=== PATIENT | male | born 1955 | race Caucasian/White ===

== ENCOUNTER 2020-01-01 11:19 | Inpatient (IN) | payer OTHER ==
[~2020-01-01] VITALS: Ht 170.2 cm; Wt 74.4 kg
[2020-01-01 11:31] VITALS: BP 142/80
[2020-01-01 11:59] LABS: HEMATOCRIT 40.7 % (42.0-52.0); HEMOGLOBIN 13.8 gm/dL (14.0-18.0); MCH 30.7 pg (26.0-34.0); MCHC 33.9 g/dL (28.0-37.0); MCV 90.8 fL (80.0-100.0); PLATELET COUNT 193 thou/uL (150-400); RBC 4.49 mil/uL (4.50-6.00); RDW 12.8 % (10.5-14.5); WBC 21.6 thou/uL (4.0-11.0)
[2020-01-01 12:00] LABS: ANION GAP 5 mmol/L (7-16); BUN 12 mg/dL (7-18); CALCIUM 9.2 mg/dL (8.5-10.1); CHLORIDE 93 mmol/L (98-107); CO2 29 mmol/L (21-32); CREATININE 1.1 mg/dL (0.7-1.3); GLUCOSE 137 mg/dL (74-106); SODIUM 127 mmol/L (136-145)
[2020-01-01 12:10] LABS: ALBUMIN 3.6 g/dL (3.4-5.0); SGOT 29 U/L (15-37); SGPT 30 U/L (30-65); TOTAL BILIRUBIN 1.7 mg/dL (0.2-1.0); TOTAL PROTEIN 7.5 g/dL (6.4-8.2); TROPONIN-I <0.06 ng/mL (<0.06)
[2020-01-01 12:25] LABS: URINE BILIRUBIN NEGATIVE (Negative); URINE BLOOD 3+ (Negative); URINE CLARITY CLEAR; URINE COLOR YELLOW; URINE GLUCOSE-RANDOM* NEGATIVE (Negative); URINE KETONES NEGATIVE (Negative); URINE LEUKOCYTES-REFLEX NEGATIVE (Negative); URINE NITRITE-REFLEX NEGATIVE (Negative); URINE PROTEIN (DIPSTICK) 2+ (Negative); URINE SPECIFIC GRAVITY 1.025 (1.005-1.035)
[2020-01-01 12:39] LABS: CASTS None Seen /LPF (None Seen); MUCUS 4-6 Moderate strn/LPF (None Seen); SQUAMOUS 0-3 Few /LPF (0-3)
[2020-01-01 12:40] LABS: BACTERIA-REFLEX 1-9 Few /HPF (None Seen); CRYSTALS None Seen /LPF (None Seen); URINE RBC 3-10 Few /HPF (0-2); URINE WBC-REFLEX 0-5 Rare /HPF (0-5)
[2020-01-01] MEDS ORDERED: SIMVASTATIN40 MG PO (12:45)
[2020-01-01 13:38] LABS: ABSOLUTE NEUTROPHILS 17.7 thou/uL (1.4-8.2); ATYPICAL LYMPHS 1 %; METAMYELOCYTES 1 %
[2020-01-01 16:09] VITALS: BP 141/78
--- NOTE | 2020-01-01 16:40 | EKG ---
[facility] [place] [address] ELECTROCARDIOGRAM REPORT Name: TR LIVE Room #: 170-15 ADM IN M.R.#: [id number] Admission: 01/01/20 Attend Phys: Jordin Talbert MD Discharge: Date of : 59 Report #: [id number] THIS REPORT FOR: cc: AGUILAR - No family physician/PCP FAM - No family physician/PCP Brandin Carvalho MD [facility] THIS REPORT FOR: //name// [facility] Test Date: 2020-01-01 Test Time: 12:14:17 Pat Name: TR LIVE Department: Room: 170 Gender: M Gore Cutter: ABBI : 1955 Requested By: Sukhdev Burnett Order Number: [id number] MD: Brandin Carvalho Measurements Intervals [place] Rate: 114 P: 63 MN: 146 QRS: 31 QRSD: 103 T: 31 QT: 314 QTc: 433 Interpretive Statements Sinus tachycardia RSR' in V1 or V2, probably normal variant No previous ECG available for comparison Electronically Signed On 01-01-2020 16:40:01 CDT by Brandin Carvalho [email or web address] <ELECTRONICALLY SIGNED> By: Brandin Carvalho MD, FACC 01/01/20 1640 1214 1214 Brandin Carvalho MD, [facility] /EPI
[2020-01-01 16:49] VITALS: BP 130/78
--- NOTE | 2020-01-01 18:28 | NUR ---
assumed care of pt on arrival to unit at approx 1715. pt aox4 in no acute distress. presents with fever of 103F. painful swallowing, otherwise voicing no complaints. up ad mp w/ steady gait. iv abx and fluids started per order. clear liquids for now. wcm.
[2020-01-01 20:25] VITALS: BP 140/82
[2020-01-02 00:42] VITALS: BP 145/77
[2020-01-02 04:05] VITALS: BP 140/82
--- NOTE | 2020-01-02 04:09 | NUR ---
assumed pt care at the change of shift, pt is awake, alerta and oriented, makes needs known, denies pain or sob, assessments as charted, temp elevated at 101.1, tyl given as per jun, medications given as per jun, o2 sat stable on room air, tolerating fluids, states that swallowing feels better, no acute distress noted, will continue to monitor
[2020-01-02 06:00] VITALS: BP 140/82
[2020-01-02 06:11] LABS: ABSOLUTE NEUTROPHILS 16.3 thou/uL (1.4-8.2); BASOPHILS 0.2 % (0.0-2.0); HEMATOCRIT 40.6 % (42.0-52.0); HEMOGLOBIN 13.5 gm/dL (14.0-18.0); LYMPHOCYTES 3.6 % (24.0-44.0); MCH 30.6 pg (26.0-34.0); MCHC 33.2 g/dL (28.0-37.0); MCV 92.2 fL (80.0-100.0); MONOCYTES 2.9 % (1.0-8.0); PLATELET COUNT 164 thou/uL (150-400); POLYS 93.3 % (36.0-66.0); RBC 4.41 mil/uL (4.50-6.00); RDW 12.9 % (10.5-14.5); WBC 17.4 thou/uL (4.0-11.0)
[2020-01-02 06:24] LABS: CALCIUM 8.5 mg/dL (8.5-10.1); POTASSIUM 4.1 mmol/L (3.5-5.1)
[2020-01-02 08:00] VITALS: BP 137/84
--- NOTE | 2020-01-02 10:10 | NUR ---
CM COMPLETED THE INITIAL ASSESSMENT TO DISCUSS D/C PLANNING. PT A&OX4. PT LIVES AT HOME ALONE. PT HAS 0 DMES. PT DENIES HX W/HH AND SNF. PT HAS LIMITED SUPPORT SYSTEM, "NOT REALLY." PT DOES NOT HAVE "ANY FAMILY REALLY...IT'S A LONG STORY." PT STATES, "I HAVE A FEW FRIENDS." PT IS ACTVES, DRIVES A VEHICLE, INDEPENDENT W/ADLS. RETIRED. GOAL IS TO RTRN HOME AT D/C. CM TO CONT TO FOLLOW.
[2020-01-02 17:00] VITALS: BP 164/81
[2020-01-02 20:27] VITALS: BP 133/79
[2020-01-03 05:07] VITALS: BP 148/89
[2020-01-03 07:59] LABS: CALCIUM 8.8 mg/dL (8.5-10.1); CREATININE 0.8 mg/dL (0.7-1.3); MAGNESIUM 2.5 mg/dL (1.8-2.4); POTASSIUM 4.5 mmol/L (3.5-5.1)
[2020-01-03 08:01] LABS: HEMATOCRIT 40.3 % (42.0-52.0); HEMOGLOBIN 13.9 gm/dL (14.0-18.0); MCH 31.3 pg (26.0-34.0); MCHC 34.5 g/dL (28.0-37.0); MCV 90.6 fL (80.0-100.0); RBC 4.44 mil/uL (4.50-6.00); RDW 12.7 % (10.5-14.5); WBC 16.7 thou/uL (4.0-11.0)
[2020-01-03 08:15] VITALS: BP 137/85
[2020-01-03 09:10] LABS: CHOLESTEROL 136 mg/dL (<200); HDL CHOLESTEROL 54 mg/dL (>40); LDL CHOLESTEROL 65 mg/dL (<100); TC:HDL 2.5 Ratio (Not establshd); TRIGLYCERIDE 88 mg/dL (<150); VLDL 18 mg/dL (<40)
--- NOTE | 2020-01-03 10:05 | EKG ---
[facility] [place] [address] ELECTROCARDIOGRAM REPORT Name: TR LIVE Room #: 354-P ADM IN M.R.#: [id number] Admission: 01/01/20 Attend Phys: Jordin Talbert MD Discharge: Date of : 59 Report #: [id number] THIS REPORT FOR: cc: AGUILAR - Faustina family physician/PCP FAM - No family physician/PCP Zach Plascencia MD ~ THIS REPORT FOR: //name// [facility] Test Date: 2020-01-03 Test Time: 09:27:13 Pat Name: TR LIVE Department: Room: 354 P Gender: M Salt Cutter: [place] : 1955 Requested By: Brina Cao Order Number: [id number] MD: Zach Plascencia Measurements Intervals [place] Rate: 105 P: 50 WI: 130 QRS: 13 QRSD: 105 T: 22 QT: 337 QTc: 446 Interpretive Statements Sinus tachycardia Atrial premature complex Sinus pause Nonspecific ST-T wave changes Compared to ECG 01/01/2020 12:14:17 Atrial premature complex(es) now present Sinus pause or arrest now present Electronically Signed On 01-03-2020 10:05:00 CDT by Zach Plascencia [email or web address] <ELECTRONICALLY SIGNED> By: Zach Plascencia MD 01/03/20 1005 6 6 Zach Plascencia MD /EPI
--- NOTE | 2020-01-03 11:24 | HC ---
[facility] [place] [address] CONSULTATION Name: TR LIVE Room #: 354-P ADM IN M.R.#: [id number] Admission: 01/01/20 Attend Phys: Jordin Talbert MD Discharge: Date of : 59 Report #: [id number] THIS REPORT FOR: cc: AGUILAR - No family physician/PCP AGUILAR - No family physician/PCP Ryan Blackman MD ~ CC: Lewis SHEIKH physician/PCP Stuart Talbert MD DATE OF SERVICE: 01/02/2020 SURGEON: Ryan Blackman MD REASON FOR CONSULTATION: Severe sore throat with sepsis. HISTORY OF PRESENT ILLNESS: The patient is a 64-year-old male admitted through the Emergency Department yesterday morning with complaints of a sudden onset of severe sore throat, about 1 in the morning. He tried to sleep through the night and eventually developed some rigors, associated with a fever. He presented to the Emergency Department complaining of sore throat as well as dysphagia and odynophagia that worsened. He has since been placed on aggressive antibiotic therapy including vancomycin and Zosyn and states that this morning, these symptoms are better, but certainly not resolved. He had an exposure to his mother who tested positive from COVID-19; two weeks ago, she since of other reasons than COVID. The patient does not have a history of sore throat. He does not have a history of any dysphagia. Risk factors for head and neck cancer include a habit of 2 glasses of red wine daily. He denies any tobacco usage. He is an active, vigorous 64-year-old. He had recently been on 15-mile bike ride the day before the symptoms began. PAST MEDICAL HISTORY: Otherwise, unremarkable. Significant for nasal septoplasty and bilateral inferior turbinectomy in the early 1970s at [facility]. FAMILY HISTORY: Mother recently . SOCIAL HISTORY: He does use alcohol. He denies tobacco or illicit drug use. REVIEW OF SYSTEMS: Other than sore throat, his 12-point review of systems [facility] [address] [place] [address] CONSULTATION Name: TR LIVE Room #: 354-P [facility] IN [facility].#: [id number] Admission: 01/01/20 Attend Phys: Jordin Talbert MD Discharge: Date of : 59 Report #: [id number] otherwise negative. Specifically, he denies any abdominal discomfort, diarrhea, constipation. He denies any burning with urination. He denies any chest pain, nausea, vomiting or shortness of breath. PHYSICAL EXAMINATION: GENERAL: Shows a well-developed 64-year-old male. He is alert, awake, and cogent. He is sitting in his hospital bed, able to converse and give history. He does have hoarseness and does complain of pain when he swallows. VITAL SIGNS: Show a temperature of 99.0 with a T-max of 101.1, pulse of 107, blood pressure 137/84, respirations of 32, 96% saturation on room air. HEENT: Normocephalic. His pupils are equal, round, reactive to light. Otologic exam shows normal canals, mild cerumen, nonobstructing. Intact tympanic membranes. No middle ear effusion. No redness. Nasal exam shows a previously operated nasal septum and a partial turbinectomy. There is no evidence of any sinusitis, mucopurulence or polyps. Oral cavity shows normal tongue, normal floor of mouth, intact mucosa. No evidence of any erythema, intact dentition without tenderness to percussion. Hypopharynx was examined with flexible endoscopy after topical Mayur-Synephrine and lidocaine. This shows severe laryngitis asymmetrically on the right with involvement of the arytenoids with some slight necrotic exudate on each arytenoid. There is no obvious abscess. The patient has minimal pooling of secretions at the posterior pharynx, but does have swelling. Vocal cords appear mobile. There is no soft tissue mass noted, although this always would be suspicious for an occult head and neck cancer. NECK: Without adenopathy or masses. The trachea is in the midline. Thyroid is normal. NEUROLOGIC: Cranial nerves 2-12 are intact. Motor, sensory and cerebellar exams are otherwise grossly normal. LABORATORY DATA: This morning, CBC shows a white count of 17,400[place] [address]. He has a hemoglobin of 13.5 and platelets of 164,000. There is a left shift. Blood cultures were positive for gram-positive cocci, still being typed. Metabolic survey shows some hyponatremia with a sodium of 129 on IV resuscitation, chloride of 95 and glucose of 115, otherwise normal. Vitamin D level was done, which is 34.5. His lactic acid on admission was 1.4. I reviewed his CT soft tissue with contrast done on admission yesterday and read out by Dr. Reyes. This shows asymmetric soft tissue in the posterior pharynx and I agree with that finding on my endoscopy. This is at the level of the larynx, associated with swelling of the arytenoids. There is no involvement of the epiglottis, either on CT or on endoscopy. Dr. Reyes wrote that he could not exclude the possibility of a very early posterior right pharyngeal abscess, I do not see any evidence of abscess on the CT and this does not correlate clinically with an abscess. There is minimal adenopathy on CT and I do not feel clinically any significant adenopathy in the neck. [facility] [address] [place] [address] CONSULTATION Name: TR LIVE Room #: 354-P [facility] IN M.R.#: [id number] Admission: 01/01/20 Attend Phys: Jordin Talbert MD Discharge: Date of : 59 Report #: [id number] A chest x-ray was done and reviewed. This was normal on admission. ASSESSMENT: 1. Sudden onset of severe sore throat, associated with hoarseness, dysphagia and odynophagia at 1 in the morning around 01/01/2020 after a 15-mile bike ride and the patient has clinically responded to Zosyn and vancomycin as well as IV hydration, but not resolved. Endoscopy is consistent with severe laryngitis; that likely is more viral in origin than bacterial. I do not see any abscess on CT or on endoscopy. Clinical suspicion in this scenario also always relates to a possibility of an occult head and neck carcinoma, especially in this patient with significant alcohol use of wine, but no tobacco. I have told him that this will need to be treated aggressively medically with assumption of clearance, if this is inflammatory. I will need to see him back in the office under any circumstance in 2 weeks for repeat endoscopy and possibly repeat CT to assure that there is no evidence of occult head and neck cancer. I have also cautioned him that if this fails to improve, this will require direct laryngoscopy for evaluation. 2. Sepsis with normal lactic acid, improved on treatment. I have talked with Dr. Arreola. I would recommend beginning Decadron 10 mg IV now, 8 mg q. 8 x6 doses. 3. Probable reflux component. I have suggested discontinuation of famotidine and addition of pantoprazole 40 mg b.i.d. half an hour before meals. 4. Hyponatremia, likely secondary to rehydration. PLAN: We will plan to follow along with you. We will discuss with Dr. Chino, Infectious Disease, who has been consulted. I appreciate the consultation and ability to share in his care. Please do not hesitate to call for any change in his clinical status. <ELECTRONICALLY SIGNED> By: Ryan Blackman MD 01/03/20 1124 0948 1345 Ryan Blackman MD /nt
--- NOTE | 2020-01-03 11:25 | O ---
[facility] [place] [address] OPERATIVE REPORT Name: TR LIVE Room #: 354-P [facility] IN M.R.#: [id number] Admission: 01/01/20 Attend Phys: Jordin Talbert MD Discharge: Date of : 59 Report #: [id number] THIS REPORT FOR: cc: AGUILAR - No family physician/PCP FAM - No family physician/PCP Ryan Blackman MD ~ CC: Ghulam Chino MD [facility] physician/PCP Stuart Talbert MD DATE OF SERVICE: 01/02/2020 SURGEON: Ryan Blackman MD PREOPERATIVE DIAGNOSES: 1. Severe sore throat. 2. Odynophagia. 3. Dysphagia. 4. Sepsis. POSTOPERATIVE DIAGNOSES: 1. Severe laryngitis, asymmetric on the right. 2. Severe sore throat. 3. Odynophagia. 4. Dysphagia. 5. Sepsis. PROCEDURE: Flexible laryngoscopy. INDICATIONS: The patient is a 64-year-old male admitted yesterday with sepsis and severe sore throat with odynophagia and dysphagia. CT scan seemed to show suggestion of swelling in the larynx and posterior pharynx. I was asked to see him to evaluate. DESCRIPTION OF PROCEDURE: In the patient's hospital room after consent, topical anesthesia was achieved with 1% Mayur-Synephrine and 4% lidocaine topically with nasal spray. After an appropriate period, a flexible laryngoscope was then passed through both sides of the nose. Complete examination was made of the nose. The patient had had a previous nasal septoplasty and partial turbinectomy. There was no evidence of any mucopurulence, polyps or other mass lesion. Nasopharynx was clear. Oral cavity showed no lesions. Hypopharynx and larynx showed diffuse edema and erythema with ulcerative laryngitis at the arytenoid, slightly asymmetric right greater than left. Vocal cords were mobile. There was no evidence of abscess. There was no significant asymmetric [facility] [place] [address] OPERATIVE REPORT Name: TR LIVE Room #: 354-P [facility]#: [id number] Admission: 01/01/20 Attend Phys: Jordin Talbert MD Discharge: Date of : 59 Report #: [id number] swelling of the retropharynx. The laryngoscope was then removed. The patient tolerated the procedure well. There were no complications. <ELECTRONICALLY SIGNED> By: Ryan Blackman MD 01/03/20 1125 1029 1044 Ryan Blackman MD /nt
--- NOTE | 2020-01-03 13:19 | NUR ---
SW reviewed chart and spoke with nursing and attending physician. Pt remains in Enhanced Isolation to r/o COVID-19. Pt's second test is pending. Pt is afebrile and not requiring O2. Pt is on IV abx. ENT consulted due to laryngitis. Plan is for pt to discharge home when medically stable. SW is following to assist as needed with discharge planning.
--- NOTE | 2020-01-03 13:47 | NUR ---
ASSUMED PATIENT CARE THIS AM AT APPROXIMATELY 0700. PATIENT AWAKE ALERT ORIENTED, ASSESSMENT AND MEDS CHARTED. PATIENT STATES THAT SORE THROAT HAS GREATLY IMPROVED OVER THE LAST COUPLE OF DAYS. COMPLAINS OF INTERMITTENT CHEST PAINS. INFORMED DR. KERNS UPON ROUNDING AND CARDIO CONSULT OBTAINED AND CALLED. DR. FAY TO SEE PATIENT. NO ACUTE CARDIAC INTERVENTIONS PLANNED AT THIS TIME. TROPONINS NEGATIVE. PATIENT IV INFILTRATED TO RIGHT AC. D/CD AND NEW IV STARTED TO LEFT FOREARM. PATIENT TOLERATED WELL.RECIEVING IV ABO ORDERED. PATIENT STILL AWAITING COVID RESULTS. TOLERATING PURREED DIET WELL. COMPLAINTS OF A DECREASED APPETITE. WILL CTM
[2020-01-03 15:20] VITALS: BP 140/93
[2020-01-03 20:00] VITALS: BP 144/90
[2020-01-04 03:59] VITALS: BP 136/81
--- NOTE | 2020-01-04 04:51 | NUR ---
PT BLOOD CULTURES CAME BACK AND SHOWED POSITIVE FOR STREP A. STARTED NEW POC WITH IVPB ANTIBIOTICS PER ID. VSS, NO COMPLAINTS OF CHEST P/N/V. NO FEVERS. PT UP AD JOSE M TO BATHROOM AND AWAITING COVID R/O.
[2020-01-04 05:12] LABS: CALCIUM 8.2 mg/dL (8.5-10.1); CREATININE 0.7 mg/dL (0.7-1.3); MAGNESIUM 2.4 mg/dL (1.8-2.4); POTASSIUM 3.9 mmol/L (3.5-5.1)
[2020-01-04 05:18] LABS: HEMATOCRIT 38.3 % (42.0-52.0); HEMOGLOBIN 12.8 gm/dL (14.0-18.0); MCH 30.4 pg (26.0-34.0); MCHC 33.3 g/dL (28.0-37.0); MCV 91.4 fL (80.0-100.0); RBC 4.19 mil/uL (4.50-6.00); RDW 12.8 % (10.5-14.5); WBC 16.4 thou/uL (4.0-11.0)
[2020-01-04 07:17] VITALS: BP 124/78
--- NOTE | 2020-01-04 11:38 | NUR ---
Received call from ЮЛИЯ Flynn[employer] manager cna with [facility] [employer] regarding pt's discharge plan. ( [phone]. [phone]). SW reviewed chart and spoke with nursing and attending physician. Pt remains in Enhanced Isolation to r/o COVID-19. Pt's second test is pending. Pt is afebrile and not requiring O2. Pt is on IV abx. Attending to discuss case with ID regarding potential discharge later today. [facility] is following to assist as needed with discharge planning.
[2020-01-04 15:24] VITALS: BP 160/99
--- NOTE | 2020-01-04 17:18 | NUR ---
ASSUMED PATIENT CARE AT 0700. A/O X4. AMBULATED IN ROOM. VSS. NO SWALLOW ISSUES. PROGRESSING TOWARDS POC GOALS.
[2020-01-04 20:28] VITALS: BP 137/87
--- NOTE | 2020-01-05 01:16 | NUR ---
ASSUMED CARE AT 1900, ASSESSMENT COMPLETED. PT DENIED PAIN, NAUSEA, OR SOB. REPORTED TOLERATING HIS NEW DIET AT DINNER WITHOUT INCIDENT. IV FLUIDS AND ABX INFUSING. HANDOFF REPORT GIVEN AT 2350, PT IN STABLE CONDITION.
[2020-01-05 03:53] VITALS: BP 138/80
--- NOTE | 2020-01-05 05:06 | NUR ---
SLEPT PART OF SHIFT. UP TO BATHROOM WITH STEADY GAIT. WORKING ON GOALS AND PLAN OF CARE FOR NOC. PROGRESSING SLOWLY TOWARDS DISCHARGE GOALS. OUT OF ISOLATION. CONTINUE TO ASSES.
--- NOTE | 2020-01-05 07:09 | NUR ---
REPORT CALLED TO ROLANDO REDMAN ON 4W FOR TRANSFER. TRANSFERED PER WHEELCHAIR. WITH BELONGINGS.
[2020-01-05 07:46] VITALS: BP 146/84
[2020-01-05 08:03] VITALS: BP 146/84
[2020-01-05 16:11] VITALS: BP 142/78
--- NOTE | 2020-01-05 17:37 | NUR ---
ASSUMED CARE OF PATIENT AT SHIFT CHANGE. ASSESSMENT CHARTED. MEDICATION GIVEN PER MAR. VSS. PATIENT IS A&OX4 AND MAKES NEEDS KNOWN. DENIES PAIN. PATIENT GETS UP INDEPENDENTLY. ABX INFUSING ON L FA. TOLERATING FOOD WELL. VOICE IS STILL HOARSE. VOICES NO OTHER NEEDS. WILL CONTINUE TO MONITOR AND FOLLOW PLAN OF CARE
[2020-01-05 20:07] VITALS: BP 138/77
[2020-01-06 02:55] VITALS: BP 141/85
--- NOTE | 2020-01-06 04:41 | NUR ---
ASSUMED CARE OF PT AT 1900. PT IS A/O X4 AND UP AD JOSE M. DENIES ANY C/O PAIN OR DISCOMFORT. STATED HE IS LOSING HIS VOICE BUT NO PAIN ASSOCIATED. CALL LIGHT IS WITHIN REACH. WILL CONTINUE TO MONITOR.
[2020-01-06 05:30] LABS: HEMATOCRIT 38.7 % (42.0-52.0); HEMOGLOBIN 12.9 gm/dL (14.0-18.0); MCH 30.5 pg (26.0-34.0); MCHC 33.3 g/dL (28.0-37.0); MCV 91.5 fL (80.0-100.0); PLATELET COUNT 266 thou/uL (150-400); RBC 4.23 mil/uL (4.50-6.00); RDW 12.9 % (10.5-14.5); WBC 9.3 thou/uL (4.0-11.0)
[2020-01-06 07:08] LABS: ABSOLUTE NEUTROPHILS 7.3 thou/uL (1.4-8.2); PLATELET ESTIMATE NORMAL
[2020-01-06 08:05] VITALS: BP 152/89
[2020-01-06 19:33] VITALS: BP 166/84
--- NOTE | 2020-01-06 19:35 | NUR ---
Patient reported of greenish sputum with coughing, voicing it is better than yesterday.
--- NOTE | 2020-01-06 21:42 | NUR ---
PT RESTING IN LOUNGE CHAIR READING BOOK. PT SMILING TALKING INDEP WITH AMBULATION. DENIES CURRENT THROAT DISCOMFORT. IVF AND ANTIBIOTICS INTACT.
[2020-01-07 05:39] VITALS: BP 148/85; BP 158/85
[2020-01-07 07:20] VITALS: BP 158/84
[2020-01-07] MEDS ORDERED: PENICILLIN VK500 MG PO (14:52)
[2020-01-07] MEDS ORDERED: PREDNISONE 10 M10 MG PO (15:08)
[2020-01-07] MEDS ORDERED: PROTONIX 20 MG20 M1 PO (15:14)
[2020-01-07 15:58] VITALS: BP 158/84
--- NOTE | 2020-01-07 19:30 | NUR ---
Assumed pt care at 7am.Assessment completed.vss.Pt up adlib in the room and hallways.Dr Sheikh here here,wanted Dr Chino to see pt befoe dc home today. Pt tolerated meds and diet.Later this evening,Dr Chino rouned on pt and okay pt to dc home.Dr Sheikh finalized dc order.Dc summary compile and reviewed with pt.Saline lock dc'd.At 1700,pt dc home in his private car.
== END 2020-01-07 17:18 | disposition home or self-care (01) | DRG 872 ==
LOC: ER 11:19 → EROBS 16:03 → 3W 16:03 → 4W 01-05 07:57
PROVIDERS: Internal Medicine; Nurse Practitioner; Nurse Practitioner Adult Health; Specialist; ADMIT Hospitalist; ATTEND Hospitalist
PROC: 0CJS8ZZ Inspection of Larynx, Via Natural or Artificial Opening Endoscopic (ICD-10-PCS; principal; 2020-01-02)
DX: A40.0 Sepsis due to streptococcus, group A (principal); E87.1 Hypo-osmolality and hyponatremia; R65.20 Severe sepsis without septic shock; J04.0 Acute laryngitis; K52.9 Noninfective gastroenteritis and colitis, unspecified; B96.89 Other specified bacterial agents as the cause of diseases classified elsewhere; R31.9 Hematuria, unspecified; B95.0 Streptococcus, group A, as the cause of diseases classified elsewhere; E78.5 Hyperlipidemia, unspecified; R13.10 Dysphagia, unspecified; R07.9 Chest pain, unspecified; Z20.828 Contact with and (suspected) exposure to other viral communicable diseases; Z79.899 Other long term (current) drug therapy; Z85.828 Personal history of other malignant neoplasm of skin
CPT/HCPCS: 10040; 10080

== ENCOUNTER → 2020-01-24 | Outpatient (CLI) | payer OTHER ==
[~2020-01-24] MED LIST: PENICILLIN VK500 MG PO; PREDNISONE 10 M10 MG PO; PROTONIX 20 MG20 M1 PO; SIMVASTATIN40 MG PO
== END ==
LOC: SJCVCIMAG 09:48
PROVIDERS: ATTEND Internal Medicine Cardiovascular Disease
DX: I10 Essential (primary) hypertension (principal); R00.0 Tachycardia, unspecified; I49.3 Ventricular premature depolarization; Z79.899 Other long term (current) drug therapy

== ENCOUNTER → 2020-02-01 | Outpatient (CLI) | payer OTHER | LOC: CAT 09:11 | PROVIDERS: ATTEND Otolaryngology Plastic Surgery within the Head & Neck | DX: K21.9 Gastro-esophageal reflux disease without esophagitis (principal); R49.0 Dysphonia; R09.89 Other specified symptoms and signs involving the circulatory and respiratory systems; J38.1 Polyp of vocal cord and larynx; Z72.89 Other problems related to lifestyle ==